=== PATIENT | female | born 1975 ===

== ENCOUNTER 2016-10-23 12:46 | Emergency (ER) | payer OTHER ==
[2016-10-23 13:03] VITALS: BP 145/85
--- NOTE | 2016-10-23 14:24 | UC ---
Silvina Savage Rebecca, scribed for Lucas Schmidt MD on 10/23/16 at 1343 . Skin Complaint HPI - HPI Summary HPI Summary: Pt is a 41 y/o F who presents to [facility] c/o ingrown hair in the inguinal region on the bikini line. Sx began Monday night (2 days ago), worsening yesterday. Reports she tried to pop it last night, releasing slight amount of fluid, then she noticed a "couple of heads near it." Additionally c/o low-grade fever last night (99.3). 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 - History of Current Complaint Chief Complaint: [facility] Time Seen by Provider: 10/23/16 13:37 Stated Complaint: SKIN ISSUE Hx Obtained From: Patient Hx Last Menstrual Period: 10/18/16 Onset/Duration: Lasting Days - Monday night, Still Present Current Severity: None Pain Intensity: 0 Pain Scale Used: 0-10 Numeric Location: Other - Inguinal region Character: Raised Aggravating: Nothing Alleviating: Nothing Associated Signs & Symptoms: Positive: Fever - low-grade - Allergy/Home Medications Allergies/Adverse Reactions: Allergies Allergy/AdvReac Type Severity Reaction Status Date / Time No Known Allergies Allergy Verified 10/23/16 13:02 Review of Systems Constitutional: Fever Skin: Other - Ingrown hair in the inguinal region on the bikini line with slight drainage Eyes: Negative ENT: Negative Respiratory: Negative Cardiovascular: Negative Gastrointestinal: Negative Genitourinary: Negative Motor: Negative Neurovascular: Negative Musculoskeletal: Negative Neurological: Negative Psychological: Negative All Other Systems Reviewed And Are Negative: Yes PMH/Surg Hx/FS Hx/Imm Hx - Additional Past Medical History Additional PMH: PMHx MRSA No PMHx CAD, DM. - Surgical History Surgical History: None - Family History Known Family History: Positive: Other - FHx MRSA - Social History Alcohol Use: Occasionally Substance Use Type: None Smoking Status (MU): Never Smoked Tobacco Physical Exam Triage Information Reviewed: Yes Vital Signs: Initial Vital Signs Temp 98.6 F 10/23/16 12:59 Pulse 66 10/23/16 12:59 Resp 16 10/23/16 12:59 BP 145/85 10/23/16 12:59 Pulse Ox 100 10/23/16 12:59 Vital Signs Reviewed: Yes - Additional Comments The patient is well-nourished in no acute distress and in no acute pain. The skin is warm and dry. There is a 7 cm x 5 cm area of erythema and has an area about 2 cm, circular, that is raised. It is not loculated and not fluctuant. HEENT: The head is normocephalic and atraumatic. The pupils are equal and reactive. The conjunctivae are clear and without drainage. Respiratory: Chest is non-tender. Lungs are clear to auscultation and breath sounds are symmetrical and equal. Cardiovascular: Hear is regular rate and rhythm. There is no murmur or rub auscultated. There is no peripheral edema and pulses are symmetrical and equal. Musculoskeletal: There is no back pain noted. Extremities are non-tender with full range of motion. Neurological: Patient is alert and oriented to person, place and time. The patient has symmetrical motor strength in all four extremities. Psychiatric: The patient has an appropriate affect and does not exhibit any anxiety or depression. Course/Dx - Course Course Of Treatment: Pt is a 41 y/o F who presents to [facility] c/o ingrown hair in the inguinal region on the bikini line since Monday night (2 days ago). Reports she tried to pop it last night, releasing slight amount of fluid, then she noticed a "couple of heads near it." Additionally c/o low-grade fever last night. 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 She will be D/C to home with Dx of folliculitis and cellulitis and an Rx for Clindamycin. She understands and agrees. Patient medications reviewed this visit. Elevated BP noted and advised to f/u with PCP. - Differential Diagnoses - Skin Complaint Differential Diagnoses: Abscess, Cellulitis, MRSA - Diagnoses Provider Diagnoses: Cellulitis. Folliculitis. Discharge - Discharge Plan Condition: Stable Disposition: HOME Prescriptions: Clindamycin Cap(NF) [Clindamycin Cap 300 mg Cap(NF)] 300 mg PO Q6H #28 cap Patient Education Materials: Cellulitis (ED), Folliculitis (ED) Referrals: Jose Boyce, [facility] [Primary Care Provider] - 3 Days Additional Instructions: Apply warm soaks. The documentation as recorded by the Silvina alcala Rebecca accurately reflects the service I personally performed and the decisions made by me, Lucas Schmidt MD.
== END 2016-10-23 13:57 | disposition home or self-care (01) ==
LOC: UCEAST 12:46
DX: L03.314 Cellulitis of groin (principal); L73.9 Follicular disorder, unspecified
CPT/HCPCS: 99212; G0463